=== PATIENT | female | born 1965 ===

== ENCOUNTER 2018-07-24 09:31 | Day surgery (SDC) | payer BC ==
[~2018-07-24 09:31] MED LIST: Lactated Ringers 1,000 ML IV SCH; Sodium Chloride 0.9% 10 ML Syringe FLUSH PRN
[2018-07-24] MEDS ORDERED: fentaNYL 100 MCG/2 ML SDV ONE ×2 (10:25→10:30)
[2018-07-24] MEDS ORDERED: Propofol 200 MG/20 ML SDV ONE ×2 (10:25→10:30)
[2018-07-24] MEDS ORDERED: Midazolam 1 MG/ML 2 ML SDV ONE ×2 (10:25→10:30)
--- NOTE | 2018-07-24 10:27 | PCM.HPR ---
H & P Addendum review - H & P Addendum Review Date of Original H & P: 07/11/18 Date Reviewed: 07/24/18 Time Reviewed: 10:27 Patient was Examined: No Changes
[2018-07-24] MEDS ORDERED: Lidocaine 2% 5 ML SDV ONE (10:30)
--- NOTE | 2018-07-24 10:52 | PCM.OPNOTE ---
- General Post-Op/Procedure Note Date of Surgery/Procedure: 07/24/18 Operative Procedure(s): EGD with bx Findings: Distal Esophagitis Gastritis Pre Op Diagnosis: Dyshasia Post-Op Diagnosis: Same Anesthesia Technique: MAC Primary Surgeon: Martell Quintana Anesthesia Provider: Silvia Cummins Pathology: Antrum and Distal Esophagus Complications: None Condition: Good
--- NOTE | 2018-07-25 07:57 | OR ---
Date of Procedure: 07/24/2018 PREOPERATIVE DIAGNOSIS: Dysphagia. POSTOPERATIVE DIAGNOSES: 1. Distal esophagitis. 2. Gastritis of the antrum. PROCEDURE: Esophagogastroduodenoscopy with biopsies. ANESTHESIA: IV sedation. PROCEDURE IN DETAIL: The patient was brought to the procedure room where she was placed on her left side, and IV sedation was administered. Oral bite-block was placed, and the upper endoscope was advanced into the esophagus under direct vision without difficulty. Vocal cords were viewed and were normal. The scope was advanced to the third portion of the duodenum. Duodenum and pylorus were normal. The antrum does have some evidence of chronic gastritis with loss of soft mucosal lining. I did biopsy this area which was quite firm. No ulcers or erosions were present in the body, and fundus appeared normal. Retroflexion was normal other than some blood-tinged mucosa at the squamocolumnar junction. I did not see any stricture, but there was evidence of some distal esophagitis. I did biopsies from the distal esophagus also. Air was removed from the stomach. The scope was withdrawn through the remaining esophagus which appears normal. The patient tolerated the procedure well and returned to recovery in stable condition. I contacted NOAH Yeung. We will start her on omeprazole 40 mg daily and follow up with her next week for review of pathology report. It appears that her dysphagia is likely from the esophagitis. ROBIN CAPELLAN MD /[id number]
== END 2018-07-24 12:20 | disposition home or self-care (01) ==
LOC: LL.SDS 09:31
PROVIDERS: ATTEND Surgery
DX: K29.50 Unspecified chronic gastritis without bleeding (principal); B96.81 Helicobacter pylori [H. pylori] as the cause of diseases classified elsewhere; K20.9 Esophagitis, unspecified; F41.1 Generalized anxiety disorder; G47.30 Sleep apnea, unspecified; Z99.89 Dependence on other enabling machines and devices; E66.9 Obesity, unspecified; Z68.41 Body mass index [BMI] 40.0-44.9, adult; Z79.899 Other long term (current) drug therapy
CPT/HCPCS: 43239; 81025; J2250; J2704; J3010; J7120

== ENCOUNTER 2022-05-31 15:30 | Emergency (ER) | payer BC, OTHER ==
[2022-05-31] MEDS ORDERED: diphenhydrAMINE 50 MG/ML SDV IM ONE (15:31)
== END 2022-05-31 16:00 | disposition home or self-care (01) ==
LOC: LL.ED 15:30
DX: T63.464A Toxic effect of venom of wasps, undetermined, initial encounter (principal); E66.9 Obesity, unspecified; Z68.30 Body mass index [BMI] 30.0-30.9, adult; Z91.013 Allergy to seafood; Z79.899 Other long term (current) drug therapy
CPT/HCPCS: 96372; 99282; 99283; J1200